=== PATIENT | female | born 1975 | race Caucasian/White ===

== ENCOUNTER → 2023-10-30 | Outpatient (CLI) | payer OTHER ==
[~2023-10-30] MED LIST: AMOX500 PO; AZAT50 PO; BALSALAZIDE; CYAN1000 PO; ERGO400 PO; FERGLU300 PO; FOLI400 PO; HYDACE5 PO; HYDGUAL120 PO; LEVSOD100 PO; MESA400ER; OFLO.3OPSO OP; OXYACE5T PO; RXHYD5325 PO; RXOXYACE PO; SERT50; TOBR.3OPSO OP; [UNRECOGNIZED DRUG - OTHER]
== END | disposition home or self-care (01) ==
LOC: LAB 16:11 → LAB SHORT 16:11
DX: R30.0 Dysuria (principal)
CPT/HCPCS: 87077; 87086; 87186